=== PATIENT | male | born 1955 | race Caucasian/White ===

== ENCOUNTER 2016-08-05 04:09 | Emergency (ER) | payer OTHER ==
[~2016-08-05] VITALS: Ht 167.6 cm; Wt 92.0 kg
[2016-08-05 04:11] VITALS: BP 157/88; PULSE 86; RESP 18; TEMP 98; O2SAT 98
[2016-08-05] MEDS ORDERED: SODIUM CHLOR 0.9% 1000 ML INJ 1,000 ML IV SCH (04:29)
[2016-08-05] MEDS ORDERED: SODIUM CHLORIDE 0.9% FLUSH 5 ML FLUSH IVF PRN (04:30)
[2016-08-05 04:36] VITALS: BP 149/82; PULSE 83; RESP 18; O2SAT 96
[2016-08-05] MEDS ORDERED: [UNRECOGNIZED DRUG - OTHER] PO (04:45)
[2016-08-05] MEDS ORDERED: TAMS5CAP PO (04:45)
[2016-08-05 05:20] LABS: AUTOMATED NEUTROPHIL # 5.8 TH/MM3 (1.8-7.7); BASOPHIL % 0.1 % (0.0-2.0); EOSINOPHIL # 0.1 TH/MM3 (0-0.4); EOSINOPHIL % 0.9 % (0.0-4.0); HEMATOCRIT 43.5 % (39.0-51.0); HEMO FLAGS DIFF FINAL; LYMPH % 12.8 % (9.0-44.0); LYMPHOCYTE # 0.9 TH/MM3 (1.0-4.8); MEAN CORPUSCULAR HEMOGLOBIN 31.2 PG (27.0-34.0); MEAN CORPUSCULAR HGB CONC 34.3 % (32.0-36.0); MONO % 7.4 % (0.0-8.0); NEUT % 78.8 % (16.0-70.0); PLATELET COUNT 211 TH/MM3 (150-450); RED BLOOD COUNT 4.78 MIL/MM3 (4.50-5.90); WHITE BLOOD COUNT 7.3 TH/MM3 (4.0-11.0)
[2016-08-05 05:42] LABS: APTT (PATIENT) 25.9 SEC (24.3-30.1); INTERNATIONAL NORMALIZED RATIO 0.9 RATIO; PROTHROMBIN TIME - PATIENT 10.4 SEC (9.8-11.6)
[2016-08-05 05:50] LABS: ALT (GPT) 26 U/L (12-78); ANION GAP 8 MEQ/L (5-15); AST (GOT) 17 U/L (15-37); BICARBONATE 28.9 MEQ/L (21.0-32.0); BLOOD UREA NITROGEN 15 MG/DL (7-18); CHLORIDE 101 MEQ/L (98-107); GLOMERULAR FILTRATION RATE 55 ML/MIN (>89); POTASSIUM 3.8 MEQ/L (3.5-5.1); SODIUM (NA) 138 MEQ/L (136-145)
[2016-08-05 05:52] LABS: ALKALINE PHOSPHATASE 39 U/L (45-117); TOTAL BILIRUBIN ADULT 0.5 MG/DL (0.2-1.0)
[2016-08-05] MEDS ORDERED: IOHEXOL 350 MG/ML 10 ML VIAL (for RAD DIAG) IV ONE (06:07)
--- NOTE | 2016-08-05 06:44 | RADRPT ---
EXAM DATE/TIME: 08/05/2016 06:02 [place] COMPARISON: No previous studies available for comparison. INDICATIONS : Abdominal pain for 1 month. Complains of black stool tonight. IV CONTRAST: 95 cc Omnipaque 350 (iohexol) IV ORAL CONTRAST: No oral contrast ingested. RADIATION DOSE: 16.64 CTDIvol (mGy) MEDICAL HISTORY : None SURGICAL HISTORY : None. ENCOUNTER: Initial ACUITY: 1 month PAIN SCALE: 1/10 LOCATION: Bilateral abdomen TECHNIQUE: Volumetric scanning of the abdomen and pelvis was performed. Using automated exposure control and ad justment of the mA and/or kV according to patient size, radiation dose was kept as low as reasonably achievable to obtain optimal diagnostic quality images. FINDINGS: LOWER LUNGS: The visualized lower lungs are clear. LIVER: Homogeneous density without lesion. There is no dilation of the biliary tree. No calcified gallston es. SPLEEN: Normal size without lesion. PANCREAS: Within normal limits. KIDNEYS: Normal in size and shape. There is no mass, stone or hydronephrosis. ADRENAL GLANDS: Within normal limits. VASCULAR: There is no aortic aneurysm. BOWEL/MESENTERY: Distal colonic diverticula. Mild nonspecific fluid distention of small bowel. No definite focal wall thickening or inflammatory changes. ABDOMINAL WALL: Within normal limits. RETROPERITONEUM: There is no lymphadenopathy. BLADDER: No wall thickening or mass. REPRODUCTIVE: Within normal limits. INGUINAL: There is no lymphadenopathy or hernia. MUSCULOSKELETAL: Within normal limits for patient age. CONCLUSION: No acute CT findings in the abdomen or pelvis Clark Orantes MD on August 05, 2016 at 6:39 Board Certified Radiologist. This report was verified electronically.
[2016-08-05 06:49] LABS: BLOOD, URINE NEG (NEG); GLUCOSE,URINE NEG (NEG); KETONE, URINE NEG (NEG); NITRITE,URINE NEG (NEG); URINE COLOR LIGHT-YELLOW (YELLW/STRAW)
--- NOTE | 2016-08-05 06:53 | PD ---
HPI Chief Complaint: GI Complaint Time Seen by Provider: 04:18 Travel History International Travel<30 days: No Contact w/Intl Traveler<30days: No Traveled to known affect area: No History of Present Illness HPI Patient is a 61-year-old male presents emergency department for evaluation of abdominal pain and dark stool. Patient states she's been having abdominal pain very mild in the epigastric area for the past week. His taken some Pepto- Bismol for notes his stool had turned dark. Denies any hypovolemic symptoms. States his pain is fairly mild and thinks he just had a GI bug. He actually declines any pain medicine in the emergency department. Denies any nausea or vomiting or diarrhea. Denies any blood in the stool. States has not happened to him before. Cramping in nature. Waxing and waning. PFSH Past Medical History Immunizations Current: Yes Sleep Apnea: Yes (USES CPAP) Past Surgical History Tympanostomy Tube: No Social History Alcohol Use: Yes (3-6BEERS/DAY) Tobacco Use: No Substance Use: Yes (COCAINE AND MARIJUANA) Allergies-Medications (Allergen,Severity, Reaction): Coded Allergies: No Known Allergies (Unverified , 08/05/16) Reported Meds & Prescriptions Reported Meds & Active Scripts Active Reported [Antifungal] PO DAILY Flomax (Tamsulosin HCl) 0.4 Mg Cap 0.4 Mg PO HS Review of Systems Except as stated in HPI: all other systems reviewed are Neg Physical Exam Narrative GENERAL: Well-developed well-nourished no apparent distress SKIN: Warm and dry. HEAD: Atraumatic. Normocephalic. EYES: Pupils equal and round. No scleral icterus. No injection or drainage. ENT: No nasal bleeding or discharge. Mucous membranes pink and moist. NECK: Trachea midline. No JVD. CARDIOVASCULAR: Regular rate and rhythm. No murmur appreciated. RESPIRATORY: No accessory muscle use. Clear to auscultation. Breath sounds equal bilaterally. GASTROINTESTINAL: Abdomen soft, non-tender, nondistended. Hepatic and splenic margins not palpable. Rectal exam: No gross blood no gross melena. Patient has all dark stool likely consistent with Pepto-Bismol use. MUSCULOSKELETAL: No obvious deformities. No clubbing. No cyanosis. No edema. NEUROLOGICAL: Awake and alert. No obvious cranial nerve deficits. Motor grossly within normal limits. Normal speech. PSYCHIATRIC: Appropriate mood and affect; insight and judgment normal. Data Data Last Documented VS Vital Signs Date Time Temp Pulse Resp B/P Pulse Ox O2 Delivery O2 Flow Rate FiO2 08/05/16 04:37 18 08/05/16 04:36 83 149/82 96 08/05/16 04:11 98.0 Orders Complete Blood Count With Diff (08/05/16 04:29) Comprehensive Metabolic Panel (08/05/16 04:29) Lipase (08/05/16 04:29) Prothrombin Time / Inr (Pt) (08/05/16 04:29) Act Partial Throm Time (Ptt) (08/05/16 04:29) Urinalysis - C+S If Indicated (08/05/16 04:29) Iv Access Insert/Monitor (08/05/16 04:29) Ecg Monitoring (08/05/16 04:29) Oximetry (08/05/16 04:29) Sodium Chlor 0.9% 1000 Ml Inj (Ns 1000 M (08/05/16 04:29) Sodium Chloride 0.9% Flush (Ns Flush) (08/05/16 04:30) Electrocardiogram (08/05/16 04:29) Type And Screen (08/05/16 04:29) Ct Abd/Pel W Iv Contrast(Rout) (08/05/16 ) Iohexol 350 Inj (Omnipaque 350 Inj) (08/05/16 06:07) Labs Laboratory Tests Test 08/05/16 08/05/16 05:11 06:22 White Blood Count 7.3 TH/MM3 Red Blood Count 4.78 MIL/MM3 Hemoglobin 14.9 GM/DL Hematocrit 43.5 % Mean Corpuscular Volume 91.0 FL Mean Corpuscular Hemoglobin 31.2 PG Mean Corpuscular Hemoglobin 34.3 % Concent Red Cell Distribution Width 13.0 % Platelet Count 211 TH/MM3 Mean Platelet Volume 8.3 FL Neutrophils (%) (Auto) 78.8 % Lymphocytes (%) (Auto) 12.8 % Monocytes (%) (Auto) 7.4 % Eosinophils (%) (Auto) 0.9 % Basophils (%) (Auto) 0.1 % Neutrophils # (Auto) 5.8 TH/MM3 Lymphocytes # (Auto) 0.9 TH/MM3 Monocytes # (Auto) 0.5 TH/MM3 Eosinophils # (Auto) 0.1 TH/MM3 Basophils # (Auto) 0.0 TH/MM3 CBC Comment DIFF FINAL Differential Comment Prothrombin Time 10.4 SEC Prothromb Time International 0.9 RATIO Ratio Activated Partial 25.9 SEC Thromboplast Time Sodium Level 138 MEQ/L Potassium Level 3.8 MEQ/L Chloride Level 101 MEQ/L Carbon Dioxide Level 28.9 MEQ/L Anion Gap 8 MEQ/L Blood Urea Nitrogen 15 MG/DL Creatinine 1.33 MG/DL Estimat Glomerular Filtration 55 ML/MIN Rate Random Glucose 89 MG/DL Calcium Level 8.3 MG/DL Total Bilirubin 0.5 MG/DL Aspartate Amino Transf 17 U/L (AST/SGOT) Alanine Aminotransferase 26 U/L (ALT/SGPT) Alkaline Phosphatase 39 U/L Total Protein 7.6 GM/DL Albumin 3.8 GM/DL Lipase 172 U/L Blood Type A NEGATIVE Antibody Screen NEGATIVE Blood Bank Comment Urine Color LIGHT-YELLOW Urine Turbidity CLEAR Urine pH 7.0 Urine Specific [place] 1.009 Urine Protein NEG mg/dL Urine Glucose (UA) NEG mg/dL Urine Ketones NEG mg/dL Urine Occult Blood NEG Urine Nitrite NEG Urine Bilirubin NEG Urine Urobilinogen LESS THAN 2.0 MG/DL Urine Leukocyte Esterase NEG Urine RBC LESS THAN 1 /hpf Urine WBC LESS THAN 1 /hpf Microscopic Urinalysis Comment CULT NOT INDICATED MDM Medical Decision Making Medical Screen Exam Complete: Yes Emergency Medical Condition: Yes Differential Diagnosis Hematochezia, abdominal pain, gastritis, gastric enteritis, ACS highly unlikely , cholecystitis, pancreatitis. Narrative Course Patient roomed emergency primary, his abdomen is benign. He was offered pain medicine and declined repeatedly in the emergency department. Was given normal saline, rectal exam shows no gross blood and no gross melena. Fecal occult negative. CT exam was performed and shows no acute abdominal pathology. CBC CMP lipase and UA negative. No definitive cause of abdominal pain has been established. On revisit patient is sleeping soundly distress. His abdomen remains benign. He is stable for discharge follow-up with a primary care provider. [facility] Point of Care Internal Pos. & Neg. Controls: Passed Fecal Specimen Occult Blood: Negative Diagnosis Primary Impression: Abdominal pain Qualified Code: R10.9 - Abdominal pain, unspecified location Disposition: 01 DISCHARGE HOME Condition: Stable Harjit Reddy MD Aug 05, 2016 06:53
[2016-08-05 06:57] LABS: COMMENT (UR) CULT NOT INDICATED; CULTURE IF INDICATED CULT NOT INDICATED
--- NOTE | 2016-08-05 17:57 | EKG ---
Date Performed: 08/05/2016 Time Performed: 05:06:58 PTAGE: 61 years EKG: Sinus rhythm SEPTAL MYOCARDIAL INFARCTION CONSIDER ANTEROSEPTAL VT - AGE INDETERMINATE NO PREVIOUS TRACING DOCTOR: Kishan Bal Interpretating Date/Time 08/05/2016 17:55:49
== END 2016-08-05 07:05 | disposition home or self-care (01) ==
LOC: NEPC 04:09
DX: R10.13 Epigastric pain (principal); G47.30 Sleep apnea, unspecified
CPT/HCPCS: 74177; 80053; 81001; 83690; 85025; 85610; 85730; 86850; 86900; 86901; 93005; 99284; J7030; Q9967